=== PATIENT | female | born 1990 | race Caucasian/White ===

== ENCOUNTER 2016-07-03 09:03 | Observation (INO) | payer BC, MEDICAID ==
[~2016-07-03] VITALS: Ht 160 cm; Wt 106.8 kg
--- NOTE | ~2016-07-03 | HP ---
ADMIT: 07/03/2016 RM/LOC: [facility] MR#: [id number] 26[address] [facility] [address] [place], [place] [address] FAROOQ FONG [address] [place] [address] Pre-OP History and Physical SEX: F AGE: 26 : 1990 Corrected: 07/03/2016 1153 mei DATE OF SERVICE: REASON FOR ADMIT: Worsening headache. HISTORY OF PRESENT ILLNESS: Ms. Fong was in clinic last with a little bit of a headache, but she was her usual bubbly self. She said it had been going on for a few days. At that point, did not sound like florid shunt malfunction, so after lengthy discussion, we took a watchful waiting evaluation, and that ended today with worsening headache and lethargy. PAST MEDICAL HISTORY: Shunting for hydrocephalus. SOCIAL HISTORY: She is nonsmoker, occasionally drinks alcohol. Does not utilize drugs of abuse. FAMILY HISTORY: No history of neurosurgical disease. ALLERGIES: MORPHINE AND SULFA. MEDICATIONS: Claritin. She has been taking some ibuprofen. We discussed the question of increased bleeding with ibuprofen, with increased risk of shunt hemorrhage due to that. PHYSICAL EXAM: VITAL SIGNS: 112/64, 97% on room air, 92 beats, 17 respirations, and 98 degrees. GENERAL: She is not her usual bubbly self. She is very subdued and somewhat lethargic. ABDOMEN: She has a morbidly obese abdomen. NEUROLOGICAL EXAMINATION: MENTAL STATUS: She is lethargic. She has early upward gaze issues. She is able to come up to midline. Her eyes are not buried down in the sunsetting position, but she does not have full range of motion superiorly with extraocular muscles. Face is symmetric. She moves her upper extremities at her baseline. ASSESSMENT AND PLAN: Ms. Fong is a very pleasant 26-year-old woman with shunt that apparently is having malfunction. We discussed risks, benefits, and alternatives to surgery. She is very familiar with this having been through shunt revisions before. Risks including, but not limited to, [place], DVT, PE, pneumonia, , loss of bowel, bladder, sexual function, brain damage, ADMIT: 07/03/2016 RM/LOC: [facility] MR#: [id number] [address] [address] RAMBO FONGRENETTA Lazaro [address] [place] [address] Pre-OP History and Physical SEX: F AGE: 26 : 1990 hemorrhage, worsening hemorrhage because of her ibuprofen, which we will attempt to reverse by giving her 2 units of platelets. Other risks for surgery include infection, CSF leak, recurrent issues, shunt fracture. We will be obtaining a shunt series prior to taking her back to the OR to evaluate the rest of the system, need for additional surgery, damage to vascular structures or visceral organs including lungs, bowels, liver and others. If General Surgery is available at the time of her urgent revision, we will plan on asking them to assist with laparoscopic intervention, although I am told that there are no general surgeons operating at this time today right now. I will plan to take her back to the OR and we admit her to the floor afterwards. Jimi Ambrose MD/ freddy JOB #: [id number] CC: Sandoval Gramajo, Attending Physician UNKNOWN, Family Physician Corrected: 07/03/2016 1153 mei
--- NOTE | ~2016-07-03 | DS ---
ADMIT: 07/03/2016 RM/LOC: 532 [facility] [id number] [id number] [address] [address] FAROOQ FONG [address] [place] [address] General Discharge Summary SEX: F AGE: 26 : 1990 ADMISSION DATE: 07/03/2016 DISCHARGE DATE: 07/05/2016 SERVICE: Neurosurgery. REASON FOR ADMISSION: 1. Headache. 2. Ventriculoperitoneal shunt malfunction. PROCEDURE: Ventriculoperitoneal shunt revision. HOSPITAL COURSE: Ms. Fong is a very pleasant 26-year-old female, very well known to our clinic for her ventriculoperitoneal shunt. She was just in to see Dr. Amborse on June 29 with headaches. After further discussion with her, it was decided on a watch and wait as she was having no other symptoms. Over the last 4 days, she has continued with her headache and yesterday started vomiting. Her vomiting continued throughout the day and she presented to [facility] ER with concern for shunt malfunction. Dr. Ambrose was consulted and she was taken to the OR for shunt revision. She tolerated the procedure well. Postoperatively, she was taken to the Med/Surg floor for monitoring and care. Postop day #1, she was awake and alert. She was afebrile and her vital signs were stable. She was moving all extremities x2 with 3/5 strength. The wound to her head had some CSF drainage. Her valve setting was changed down to a 2. X-ray confirmation was obtained for the shunt change. She worked with Physical Therapy. She tolerated this quite well. Postop day #2, she was afebrile, her vital signs were stable. She was awake and alert. She was moving all extremities x4. Her wounds were clean, dry, and intact. She had no further CSF drainage from her incision. She was ambulating, urinating, and defecating per her norm and was requesting discharge home. DISCHARGE CONDITION: Good. MEDICATIONS: Tylenol 650 mg p.o. q.4 hours p.r.n. ADMIT: 07/03/2016 RM/LOC: 532 [facility] MR#: [id number] [address] [address] FAROOQ FONG [address] [place] [address] General Discharge Summary SEX: F AGE: 26 : 1990 DISCHARGE INSTRUCTIONS: She should shower, she should not take any tub baths, she should pat her incisions dry. She can have a regular diet. She should call with any questions or concerns including neurological worsening, signs or symptoms of infection, or any other issues. She will call if she has any further CSF drainage from her head incision. FOLLOWUP: She will follow up with Chetna in clinic in 2 weeks. DISPOSITION: She was discharged home. Total pwlw-of-hzab time for the discharge planning and care coordination was 30 minutes. Chetna Augustine APRN / Jimi Ambrose MD / freddy JOB #: [id number] CC: Jimi Ambrose MD, Attending Physician Jimi Ambrose MD, Family Physician
[~2016-07-03 09:03] MED LIST: BACITRACIN OPH3.5 GM TP; HYDROCHLOROTHIA25 MG PO; SINGULAIR DPS5 MG PO; TYLENOL DP650 MG/20. PO; TYLENOL DPS325 MG PO; TYLENOL-DP325 MG/10. PO
--- NOTE | 2016-07-05 08:33 | OR ---
ADMIT: 07/03/2016 RM/LOC: 532 [facility] MR#: [id number] [facility] [id number] [address] [address] RAMBO SMITHRENETTA Lazaro [address] [place] [address] Operative/Delivery Room Report SEX: F AGE: 26 : 1990 SURGERY DATE: 07/03/2016 SURGEON: Paras Ackerman MD PREOPERATIVE DIAGNOSIS: Need for ventriculoperitoneal shunt revision. POSTOPERATIVE DIAGNOSIS: Need for ventriculoperitoneal shunt revision. PROCEDURE: Diagnostic laparoscopy for laparoscopic placement of intraperitoneal portion of [employer] S[employer]ENER shunt. DESCRIPTION OF PROCEDURE: The patient remained intubated, prepped and draped in the usual fashion for ventriculoperitoneal shunt surgery. A 5-mm infraumbilical incision was made in the skin. The fascia was grasped with a Aris clamp, and a Veress needle was advanced into the peritoneal cavity. Carbon dioxide was used to insufflate the abdomen to 15 mmHg pressure. The Veress needle was withdrawn, and a 5-mm trocar was placed. Laparoscope was advanced and showed intraperitoneal position with no damage to underlying structures. Laparoscopic visualization of the right upper quadrant revealed an access point for the ventriculoperitoneal shunt deployment sheath. This was advanced into the abdomen under visualization. The catheter was then deployed into the abdomen, remained free from surrounding structures. The port was then removed, and the abdomen was allowed to deflate. Paras Ackerman MD/ dericl JOB #: [id number] CC: Jimi Ambrose, Attending Physician Jimi Ambrose, Family Physician
[2016-07-06] MEDS ORDERED: BACITRACIN15 G1 TP (09:51)
--- NOTE | 2016-07-07 10:16 | OR ---
ADMIT: 07/03/2016 RM/LOC: 532 [facility] MR#: [id number] [address] [address] RAMBO SMITHR[place]ETTA [place]az[place] [address] [place] [address] Operative/Delivery Room Report SEX: F AGE: 26 : 1990 SURGERY DATE: 07/03/2016 SURGEON: Jimi Ambrose MD PREOPERATIVE DIAGNOSIS: Shunt malfunction. POSTOPERATIVE DIAGNOSIS: Shunt malfunction. VICE PRESIDENT OF PRODUCT MARKETING: Chetna Augustine APRN. CO-SURGEON: Paras Ackerman MD. Please see Dr. Ackerman's discussion for the intraabdominal laparoscopy. PROCEDURE: Removal of complete ventriculoperitoneal system with intraoperative ventricular endoscopy and replacement of ventricular shunt system with programable valve with intraoperative valve programming ensuring that the setting of 4 on the Codman Certas valve was appropriate from the factory with connection to Bactiseal catheters and distal tunneling to Dr. Ackerman's abdominal incision. DESCRIPTION OF PROCEDURE: After gaining informed consent, the patient was taken to the operative theater, placed under general endotracheal anesthesia in supine position. A time-out was utilized to ascertain the correct site and side of surgery as well as other pertinent patient historical information. Counts were obtained at the beginning and the end of the case with no change betwixt the two. Antibiotics were given within 1 hour of incision. The incision was opened at the top of the head. This was then taken down to the shunt catheter which was delineated. This was removed from the valve and the proximal shunt catheter was removed. This came out under high pressure. There appeared to be detritus within the valve and decision was made to replace the entire system. At this point, a new ventricular catheter was brought into the field and soft-passed through the brain to 6 cm and the ventricular endoscope was utilized to visualize the internal aspect of the ventricle and leave this in place. The Codman Certas valve was preoperatively evaluated to make sure it was programmed at a setting of 4. This was then opened, brought into the field, and connected to the Bactiseal distal catheter with a 2-0 silk tie. The abdominal incision was then opened and the abdominal catheter was discovered. The old valve was pulled up and disconnected and the old peritoneal catheter was then tied to the new peritoneal catheter and valve, and this was then pulled down to the abdominal incision. This was then connected to the ventricular catheter with 2-0 silk tie. Once all this was completed, the wound in the scalp was closed with simple, inverted, and interrupted 2-0 Vicryl and twan on the skin. The shunt catheter had visible drippage prior to implantation. Dr. Ackerman accessed the abdomen, and then I tunneled the catheter intraperitoneally obtaining laparoscopic pictures confirming both interventricular as well as intraperitoneal placement. Once this was completed, those wounds were sewn with simple, inverted, and ADMIT: 07/03/2016 RM/LOC: 532 [facility] MR#: [id number] [address] [place] [address] [facility] [place] [address] [place] [address] Operative/Delivery Room Report SEX: F AGE: 26 : 1990 interrupted 2-0 Vicryl and subcuticular 4-0 Monocryl. Ms. Augustine assisted with suction, retraction, and closure at the end of the case. COMPLICATIONS: None. ESTIMATED BLOOD LOSS: Charted. SPECIMEN: Prior shunt. DISPOSITION: Extubated and taken to postanesthesia care unit. Jimi Ambrose MD/ freddy JOB #: [id number] CC: Jimi Ambrose, Attending Physician Jimi Ambrose, Family Physician
--- NOTE | 2016-07-09 21:33 | ER ---
ADMIT: 07/03/2016 RM/LOC: W.13 [facility] MR#: [id number] [address] [address] FAROOQ SMITH [address] [place] [address] Emergency Room Report SEX: F AGE: 26 : 1990 DATE: 07/03/2016 ADDENDUM: CHIEF COMPLAINT: Headache, nausea, and vomiting. HISTORY OF PRESENT ILLNESS: This is a 26-year-old, who just kind of had headaches off and on for the last two weeks. She did see actually Dr. Jimi Ambrose about a week ago. They discussed having a CT. At that time, she said she felt pretty good otherwise besides mild headaches. So, at that time, they decided not to do a head CT. She started having vomiting yesterday. The vomiting continues through the day, so that hinted her towards that she may have malfunction, so she came to the ER. Dr. Jimi Ambrose was called. He has taken her to surgery from here. CLINICAL IMPRESSION: Hydrocephalus, shunt malfunction. CT did show increased ventricle size. At this time, PT, PTT, and CBC have been ordered and those are pending. DISPOSITION: She is stable at admit. RYAN Miller / Sandoval Gramajo MD / freddy JOB #: [id number] CC: Jimi Ambrose MD, Attending Physician Jimi Ambrose MD, Family Physician
== END 2016-07-05 14:04 | disposition home or self-care (01) ==
LOC: ER 09:03 → 5MS 10:45 → WOR 10:45 → 5MS 16:43
PROVIDERS: ADMIT Neurological Surgery
DX: T85.09XA Other mechanical complication of ventricular intracranial (communicating) shunt, initial encounter (principal); G91.9 Hydrocephalus, unspecified; Z88.2 Allergy status to sulfonamides; Z88.6 Allergy status to analgesic agent; Z98.890 Other specified postprocedural states

== ENCOUNTER 2016-07-07 16:18 | Emergency (ER) | payer BC, MEDICAID ==
[~2016-07-07 16:18] MED LIST changes: +BACITRACIN15 G1 TP
--- NOTE | 2016-07-14 11:08 | ER ---
ADMIT: 07/07/2016 RM/LOC: ER [facility] MR#: [id number] [address] [address] LILYFAROOQ SOLO [place]jas [address] [place] [address] Emergency Room Report SEX: F AGE: 26 : 1990 DATE: 07/07/2016 PRIMARY CARE PHYSICIAN: Dr. King. CHIEF COMPLAINT: Drainage from surgical site. HISTORY OF PRESENT ILLNESS: This is a pleasant 26-year-old female, who presents to the Emergency Department with her mother after they noticed there was some drainage from her incision. The patient states she had a shunt revision completed on Sunday. She was recovering without incident when they noticed some clear fluid draining from it last night. They phoned Dr. Ambrose's office, who told them to present to the ER for further evaluation and management. The patient states she does have CP and hydrocephalus. She has had 4 shunt revisions done previously as well as the back surgery. Denies any fever, chills, sweating, nausea, vomiting, or neck pain. Does admit to a dull headache. COURSE IN THE EMERGENCY ROOM: The patient was seen and examined. Dr. Ambrose did meet the patient in the ER. He repaired the incision on her head with three sutures to reinforce the incision as well as made some adjustments to her shunt drainage settings. A 4 view diagonal shunt valve x-ray series was obtained per Dr. Ambrose's request. IMPRESSION: 1. Status post shunt revision with drainage. 2. Hydrocephalus. 3. Cerebral palsy. DISPOSITION: The patient is to follow up with Dr. Ambrose next Sunday in his outpatient clinic. She was provided a script for Keflex 500 mg, elixir p.o. b.i.d. for 10 days. She is to monitor for any worsening signs and symptoms to include fever, headache, nausea, vomiting, or any other concerning symptoms. She should return to the ER and inform Dr. Ambrose's office with concerns. She is to continue her medications as previously prescribed. She is to monitor the incision site for any redness, purulent drainage, or increased pain. She is to keep her wound clean and dry. She was discharged from the department in stable condition to follow up with Dr. Ambrose next Sunday. RYAN Berry / Fernando Wilks MD / freddy JOB #: [id number] CC: Fernando Wilks MD, Attending Physician UNKNOWN, Family Physician
--- NOTE | 2016-07-17 11:58 | CO ---
ADMIT: 07/07/2016 RM/LOC: [facility] MR#: [id number] [address] [address] FAROOQ FONG [address] [place] [address] Consultation SEX: F AGE: 26 : 1990 DATE OF CONSULTATION: 07/07/2016 ATTENDING PHYSICIAN: Lara Red CONSULTING PHYSICIAN: Jimi Ambrose MD INTERVAL HISTORY: Ms. Fong is a very pleasant woman, who had her shunt turned down just before leaving after her shunt revision. She had called last night with some dampness around the wound and this morning had some actual CSF drainage. She was instructed to come into the emergency department, which she did. PAST MEDICAL HISTORY: Spina bifida and hydrocephalus. Social history, family history, and review of systems all unchanged from previously having been seen just a few days ago. MEDICATIONS: As stated on her discharge summary. PHYSICAL EXAMINATION: VITAL SIGNS: 155/89, 88 beats, 16 respirations, and 98.7 degrees, she has been afebrile. She has no neurological complaints that are new. She is in her wheelchair. She has some clear fluid, just minimally draining from the superior aspect of the wound. Her shunt valve is depressible. I depressed it about 20 times in case of air lock and instructed her mother to do it 40 to 50 times before doing the Betadine or Neosporin that she has been told to do twice daily for the next 3 days to make sure that the shunt is effectively draining. There is no erythema or exudate. This does not look infected at all. ASSESSMENT AND PLAN: Ms. Fong is a very pleasant lady with hydrocephalus. Because she has had some drainage, I am going to put her on Keflex for the next 10 days. Under sterile conditions, I oversewed the wound with 3-0 nylon, which she tolerated very well. There was no sign of leakage after that. I used the Blokifyas shunt programming tool to turn the shunt down to a setting of 1, its lowest setting. X-ray has been ordered for verification of shunt program level, and I will plan to see her back in clinic next Sunday for wound check as long as she does not have any further drainage, at which time, we may end up doing a shunt exploration. Jimi Ambrose MD/ freddy JOB #: [id number] CC: Lara Red, Attending Physician Jimi Ambrose, Family Physician
== END 2016-07-07 18:50 | disposition home or self-care (01) ==
LOC: ER 16:18
DX: G91.9 Hydrocephalus, unspecified (principal); G80.9 Cerebral palsy, unspecified; Z98.2 Presence of cerebrospinal fluid drainage device; Z88.2 Allergy status to sulfonamides; Z88.5 Allergy status to narcotic agent